=== PATIENT | female | born 1985 | race Hispanic/Latino ===

== ENCOUNTER 2020-05-31 06:24 | Day surgery (SDC) | payer MEDICAID, OTHER ==
[2020-05-29 11:46] LABS: BASOPHILS % (AUTO) 0.6 % (0.0-5.0); EOSINOPHILS % (AUTO) 2.1 % (0.0-8.0); HEMATOCRIT 38.4 % (36-48); LYMPHOCYTES % (AUTO) 27.4 % (21.0-51.0); MEAN CORPUSCULAR HEMOGLOBIN 27.5 pg (27.0-33.0); MEAN CORPUSCULAR HGB CONC 32.6 g/dL (32.0-36.0); MEAN CORPUSCULAR VOLUME 84.4 fL (79-99); MONOCYTES % (AUTO) 5.1 % (3.0-13.0); NEUTROPHILS % (AUTO) 64.2 % (40.0-77.0); PLATELET COUNT (AUTO) 263 K/uL (130-400); RED BLOOD CELL COUNT(AUTO) 4.55 MIL/uL (4.00-5.50); RED CELL DISTRIBUTION WIDTH 13.4 % (11.0-15.5); WHITE BLOOD COUNT (AUTO) 5.3 K/uL (4.8-10.8)
[2020-05-30 10:46] VITALS: BP 128/68
[~2020-05-31] VITALS: Ht 162.6 cm; Wt 95.7 kg
[2020-05-31] MEDS ORDERED: CEFAZOLIN SODIUM 1 GM VIAL ONE (06:56)
[2020-05-31 07:00] VITALS: BP 121/69
[2020-05-31] MEDS ORDERED: SUCCINYLCHOLINE CHLORIDE 20 MG/ML 10 ML VIAL ONE (07:12)
[2020-05-31] MEDS ORDERED: LIDOCAINE PF 2% 5ML ABBOJECT ONE (07:12)
[2020-05-31] MEDS ORDERED: ONDANSETRON HCL 4 MG/2 ML VIAL ONE (07:12)
[2020-05-31] MEDS ORDERED: DEXAMETHASONE SOD PHOSPHATE 10MG/ML 1ML VIAL ONE (07:12)
[2020-05-31] MEDS ORDERED: MIDAZOLAM HCL 1 MG/ML 2ML VIAL ONE (07:12)
[2020-05-31] MEDS ORDERED: ROCURONIUM 10MG/1ML SYR 10 MG/ML ML ONE (07:13)
[2020-05-31] MEDS ORDERED: GLYCOPYRROLATE 1 MG/5 ML SYRINGE ONE ×2 (07:13→07:56)
[2020-05-31] MEDS ORDERED: PROPOFOL 10 MG/ML 20ML VIAL IV ONE (07:13)
[2020-05-31] MEDS ORDERED: FENTANYL CITRATE PF 50 MCG/1 ML 2ML VIAL ONE ×2 (07:13→07:48)
[2020-05-31] MEDS ORDERED: NEOSTIGMINE 5MG/5ML SYR IV ONE (07:13)
[2020-05-31] MEDS ORDERED: CEFAZOLIN SODIUM 1 GM VIAL IVP ONE ×2 (07:44→08:00)
[2020-05-31] MEDS ORDERED: OXYTOCIN 10 USP UNITS/ML ONE (07:53)
[2020-05-31] MEDS ORDERED: LACTATED RINGERS 1000ML 1,000 ML IV SCH (08:00)
[2020-05-31] MEDS ORDERED: METHYLERGONOVINE MALEATE 0.2 MG/1 ML ML ONE (08:02)
[2020-05-31] MEDS ORDERED: CALDOLOR 800MG+NS 250ML 250 ML IV ONE (08:19)
[2020-05-31 09:18] VITALS: BP 109/68
[2020-05-31 09:50] VITALS: BP 119/64
== END 2020-05-31 09:54 | disposition home or self-care (01) ==
LOC: DAH 06:24
PROVIDERS: ATTEND Obstetrics & Gynecology
DX: O02.1 Missed abortion (principal); Z20.822 Contact with and (suspected) exposure to COVID-19; Z90.49 Acquired absence of other specified parts of digestive tract; E66.9 Obesity, unspecified; Z79.899 Other long term (current) drug therapy; Z98.890 Other specified postprocedural states
CPT/HCPCS: 36415; 59821; 84703; 85025; 86850; 86900; 86901; A4213; A4215; A4216; A4221; A4222; A4223 ×2; A4335; A4510; A4600; A4663; C9803; J0330; J0690 ×2; J1100; J1741; J2001; J2210; J2250; J2405; J2590; J2704; J2710; J3010 ×2; J3490 ×2; J7120 ×2; U0003

== ENCOUNTER 2021-08-08 11:00 | Emergency (ER) | payer MEDICAID ==
[~2021-08-08] VITALS: Ht 167.6 cm; Wt 92.5 kg
[2021-08-08 11:26] LABS: BASOPHILS % (AUTO) 0.7 % (0.0-5.0); EOSINOPHILS % (AUTO) 2.2 % (0.0-8.0); HEMATOCRIT 40.9 % (36-48); LYMPHOCYTES % (AUTO) 27.2 % (21.0-51.0); MEAN CORPUSCULAR HEMOGLOBIN 26.1 pg (27.0-33.0); MEAN CORPUSCULAR HGB CONC 31.3 g/dL (32.0-36.0); MEAN CORPUSCULAR VOLUME 83.3 fL (79-99); MONOCYTES % (AUTO) 8.5 % (3.0-13.0); NEUTROPHILS % (AUTO) 60.9 % (40.0-77.0); PLATELET COUNT (AUTO) 255 K/uL (130-400); RED BLOOD CELL COUNT(AUTO) 4.91 MIL/uL (4.00-5.50); RED CELL DISTRIBUTION WIDTH 14.6 % (11.0-15.5); WHITE BLOOD COUNT (AUTO) 4.1 K/uL (4.8-10.8)
[2021-08-08 11:32] LABS: APPEARANCE,URINE Clear (CLEAR); BILIRUBIN,URINE Negative (NEGATIVE); COLOR,URINE Yellow (YELLOW); GLUCOSE, URINE (UA) Negative (NEGATIVE); KETONES,URINE Negative (NEGATIVE); LEUKOCYTE ESTERASE ,URINE Moderate (NEGATIVE); NITRATE,URINE Negative (NEGATIVE); OCCULT BLOOD,URINE Negative (NEGATIVE); PH,URINE 6.5 (5.0-8.0); PROTEIN,URINE Negative (NEGATIVE)
[2021-08-08 11:36] LABS: HCG,QUAL RESULT NEGATIVE (NEGATIVE)
[2021-08-08 11:58] LABS: CREATININE 0.6 mg/dL (0.5-1.5); POTASSIUM 3.3 mmol/L (3.5-5.1)
[2021-08-08 12:03] LABS: ALBUMIN 3.7 g/dL (3.5-5.0); BILIRUBIN,TOTAL 0.3 mg/dL (0.2-1.0); TOTAL PROTEIN, SERUM 7.5 g/dL (6.0-8.3)
[2021-08-08 12:14] LABS: BACTERIA,URINE Few /HPF (None Seen); RBC,URINE None Seen /HPF (0-1); SQUAMOUS EPITHELIAL CELL,UR 0-2 /HPF (0-2)
[2021-08-08] MEDS ORDERED: DICYCLOMINE HCL 10 MG/5 ML ML PO ONE (12:30)
[2021-08-08] MEDS ORDERED: ONDANSETRON 4MG INJ IVP ONE (12:30)
[2021-08-08] MEDS ORDERED: CEFTRIAXONE 1G VIAL IVP ONE (12:30)
[2021-08-08] MEDS ORDERED: 0.9%NACL 1000ML 1,000 ML IV ONE (12:30)
[2021-08-08] MEDS ORDERED: MAG/ALUM/SIMETH 30 ML UDCUP PO ONE (12:30)
[2021-08-08] MEDS ORDERED: FAMOTIDINE 20MG TAB PO ONE (12:30)
[2021-08-08] MEDS ORDERED: LIDOCAINE HCL 2% VISCOUS 15 ML UDCUP PO ONE (12:30)
[2021-08-08] MEDS ORDERED: POTASSIUM BICARB/CIT AC 25 MEQ TABLET.EFF PO ONE (13:00)
[2021-08-08] MEDS ORDERED: DICY20TA2 PO (13:26)
[2021-08-08] MEDS ORDERED: CEPH500B PO (13:26)
[2021-08-08] MEDS ORDERED: ONDA4TAB10 PO (13:26)
[2021-08-08 14:02] VITALS: BP 129/72
[2021-08-08 20:14] LABS: HEPATITIS A IGM ANTIBODY Non-Reactive (Negative); HEPATITIS B CORE IGM ANTIBODY Non-Reactive (Negative); HEPATITIS B SURFACE ANTIGEN Non-Reactive (Negative); HEPATITIS C ANTIBODY Non-Reactive (NEGATIVE)
== END 2021-08-08 14:02 | disposition home or self-care (01) ==
LOC: EDH 11:00
DX: A08.4 Viral intestinal infection, unspecified (principal); E86.0 Dehydration; N39.0 Urinary tract infection, site not specified; R79.89 Other specified abnormal findings of blood chemistry; Z20.822 Contact with and (suspected) exposure to COVID-19; Z79.899 Other long term (current) drug therapy; Z98.890 Other specified postprocedural states
CPT/HCPCS: 36415; 80053; 80074; 81001; 81025; 83690; 84484; 85025; 87088; 87635; 96361; 96374; 96375; 99284; C9803; J0696; J2405; J7030

== ENCOUNTER 2022-06-21 09:33 | Emergency (ER) | payer BC, MEDICAID ==
[~2022-06-21] VITALS: Ht 167.6 cm; Wt 94.3 kg
[~2022-06-21 09:33] MED LIST: CEPH500B PO; DICY20TA2 PO; ONDA4TAB10 PO
[2022-06-21] MEDS ORDERED: FLUT16H NASAL (12:09)
[2022-06-21] MEDS ORDERED: D-ME118S47 PO (12:09)
[2022-06-21] MEDS ORDERED: LORA10TA7 PO (12:09)
[2022-06-21] MEDS ORDERED: BENZ200C53 PO (12:09)
[2022-06-21] MEDS ORDERED: AZIT250T9 PO (12:09)
[2022-06-21] MEDS ORDERED: IBUP-2070 PO (12:09)
[2022-06-21 12:32] VITALS: BP 134/95
== END 2022-06-21 12:31 | disposition home or self-care (01) ==
LOC: EDH 09:33
DX: J06.9 Acute upper respiratory infection, unspecified (principal); J00 Acute nasopharyngitis [common cold]; R05.9 Cough, unspecified; Z20.822 Contact with and (suspected) exposure to COVID-19; Z90.49 Acquired absence of other specified parts of digestive tract
CPT/HCPCS: 99283; 87635; 87880; 87804 ×2; C9803

== ENCOUNTER 2022-12-01 19:08 | Emergency (ER) | payer BC, MEDICAID ==
[~2022-12-01] VITALS: Ht 167.6 cm; Wt 93.9 kg
[~2022-12-01 19:08] MED LIST changes: +AZIT250T9 PO; +BENZ200C53 PO; +BROM118S48 PO; +FLUT16H NASAL; +IBUP-2070 PO; +LORA10TA7 PO
[2022-12-01] MEDS ORDERED: FAMOTIDINE 20MG TAB PO ONE (22:30)
[2022-12-01] MEDS ORDERED: ONDANSETRON 4MG INJ IVP ONE (22:30)
[2022-12-01] MEDS ORDERED: LACTATED RINGERS 1000ML 1,000 ML IV ONE (22:30)
[2022-12-01 22:49] LABS: APPEARANCE,URINE CLEAR (CLEAR); BILIRUBIN,URINE NEGATIVE (NEGATIVE); COLOR,URINE LIGHT-YELLOW (YELLOW); GLUCOSE, URINE (UA) NEGATIVE (NEGATIVE); KETONES,URINE NEGATIVE (NEGATIVE); LEUKOCYTE ESTERASE ,URINE 500 Leu/uL (NEGATIVE); NITRATE,URINE NEGATIVE (NEGATIVE); OCCULT BLOOD,URINE MODERATE (NEGATIVE); PH,URINE 5.5 (5.0-8.0); PROTEIN,URINE NEGATIVE (NEGATIVE); UROBILINOGEN,URINE 0.2 mg/dL (0.2-1.0)
[2022-12-01 22:53] LABS: ADD UA MICROSCOPIC YES; HCG,QUALITATIVE URINE NEGATIVE (NEGATIVE)
[2022-12-01 22:55] LABS: MUCUS,URINE RARE LPF (None Seen); SQUAMOUS EPITHELIAL CELL,UR FEW /HPF (0-2)
[2022-12-01 22:57] LABS: BASOPHILS # (AUTO) 0.03 K/uL (0.00-0.20); BASOPHILS % (AUTO) 0.4 % (0.0-5.0); EOSINOPHILS # (AUTO) 0.16 K/uL (0.00-0.70); EOSINOPHILS % (AUTO) 2.4 % (0.0-8.0); HEMATOCRIT 37.6 % (36-48); IMMATURE GRANULOCYTE ABSOLUTE 0.02 K/uL (0-1); LYMPHOCYTES # (AUTO) 2.1 K/uL (1.0-4.8); LYMPHOCYTES % (AUTO) 31.8 % (21.0-51.0); MEAN CORPUSCULAR HEMOGLOBIN 25.5 pg (27.0-33.0); MEAN CORPUSCULAR HGB CONC 31.9 g/dL (32.0-36.0); MONOCYTES # (AUTO) 0.5 K/uL (0.1-1.0); NEUTROPHILS # (AUTO) 3.9 K/uL (1.8-7.7); NEUTROPHILS % (AUTO) 58.1 % (40.0-77.0); PLATELET COUNT (AUTO) 292 K/uL (130-400); RED CELL DISTRIBUTION WIDTH 14.6 % (11.0-15.5); WHITE BLOOD COUNT (AUTO) 6.7 K/uL (4.8-10.8)
[2022-12-01 23:12] LABS: CREATININE 0.8 mg/dL (0.5-1.5); POTASSIUM 3.7 mmol/L (3.5-5.1)
[2022-12-01 23:18] LABS: BILIRUBIN,TOTAL 0.4 mg/dL (0.2-1.0); TOTAL PROTEIN, SERUM 7.6 g/dL (6.0-8.3)
[2022-12-02] MEDS ORDERED: FAMO-136 PO (00:22)
[2022-12-02] MEDS ORDERED: CEPH500B PO (00:22)
[2022-12-02] MEDS ORDERED: ONDA4TAB10 PO (00:22)
[2022-12-02] MEDS ORDERED: CEFTRIAXONE 1G VIAL IVPB ONE (00:30)
[2022-12-02 01:27] VITALS: BP 124/82; PULSE 64; RESP 16; O2SAT 100
== END 2022-12-02 01:28 | disposition home or self-care (01) ==
LOC: EDH 19:08
DX: N39.0 Urinary tract infection, site not specified (principal); K43.9 Ventral hernia without obstruction or gangrene; Z90.49 Acquired absence of other specified parts of digestive tract; Z79.899 Other long term (current) drug therapy
CPT/HCPCS: 99284; 74176; 96361; 96375; 80053; 83690; 85025; 87088; 81001; 81025; 36415; 96365; J7120; J2405; J0696